=== PATIENT | female | born 1930 | race African-American/Black ===

== ENCOUNTER 2017-11-02 10:26 | Emergency (ER) | payer MEDICARE ==
[~2017-11-02] VITALS: Ht 157.5 cm; Wt 110.5 kg
[~2017-11-02 10:26] MED LIST: ALBU2.5V13 IH; ASPI-986 PO; COR12 PO; FLUT1DIS3 IH; FURO-151 PO; Isosorb Dinit/Hydralazine Hcl PO; LOSA50TA20 PO; P20 PO; POTA10TA11 PO; SIMV40TA5 PO; Spironolactone PO; VALS320T15 PO
[2017-11-02] MEDS ORDERED: NALOXONE HCL 1 MG/ML 2ML VIAL IV ONE (10:45)
[2017-11-02 11:13] LABS: HEMATOCRIT. 38.6 % (36.0-48.0); HEMOGLOBIN. 12.7 g/dL (12.0-16.0); MEAN CORPUSCULAR HEMOGLOBIN 30.2 pg (28.0-32.0); MEAN CORPUSCULAR VOLUME 91.8 fL (81.0-99.0); MEAN PLATELET VOLUME 8.8 fl (7.4-10.4); PLATELET 211 x1000/uL (130-400); RED CELL DISTRIBUTION WIDTH 15.1 % (11.6-14.6)
[2017-11-02 11:19] LABS: CHLORIDE 111 mEq/L (98-107)
[2017-11-02 11:22] LABS: ETHANOL BLOOD < 10 mg/dL
[2017-11-02 11:23] LABS: INR 1.1; PARTIAL THROMBOPLASTIN TIME 22.5 sec (23.4-31.0); PROTHROMBIN TIME 11.5 sec (9.4-11.6)
[2017-11-02] MEDS ORDERED: ETOMIDATE 2MG/ML 10ML VIAL IV ONE ×2 (11:30→13:00)
[2017-11-02] MEDS ORDERED: SUCCINYLCHOLINE CHLORIDE 200MG/10ML VIAL IV ONE ×2 (11:30→13:00)
[2017-11-02] MEDS ORDERED: PROPOFOL 10MG/ML 100ML 100 ML IV ONE ×2 (11:30→13:03)
[2017-11-02] MEDS ORDERED: MIDAZOLAM HCL 50 MG in DEXTROSE 5% WATER 40 ML IV ONE (11:30)
[2017-11-02] MEDS ORDERED: LIDOCAINE HCL/PF 1% 10 MG/ML 5ML VIAL ONE (11:41)
[2017-11-02] MEDS ORDERED: MIDAZOLAM HCL 2 MG/2 ML VIAL IV ONE (11:45)
[2017-11-02] MEDS ORDERED: ASPIRIN 300MG SUPP PR ONE (11:45)
[2017-11-02 11:48] LABS: CLARITY URINE CLEAR (CLEAR); COLOR URINE YELLOW (YELLOW); KETONES URINE NEGATIVE (NEGATIVE); LEUKOCYTE ESTERASE URINE 3+ (NEGATIVE); NITRITE URINE NEGATIVE (NEGATIVE); OCCULT BLOOD URINE 1+ (NEGATIVE); PH URINE 7.5 (4.5-8.0); PROTEIN URINE NEGATIVE (NEGATIVE); SPECIFIC GRAVITY URINE 1.006 (1.005-1.030); UROBILINOGEN URINE 0.2 E.U./dL (0.2-1.0)
[2017-11-02] MEDS ORDERED: FUROSEMIDE 40MG/4ML VIAL IVP ONE (12:00)
[2017-11-02 12:13] LABS: CANNABINOID URINE SCREEN NEGATIVE (NEGATIVE)
[2017-11-02 12:14] LABS: *AMPHETAMINES SCREEN URINE NEGATIVE (NEGATIVE); *BARBITURATES SCREEN URINE NEGATIVE (NEGATIVE); *BENZODIAZEPINES SCREEN URINE NEGATIVE (NEGATIVE); *COCAINE SCREEN URINE NEGATIVE (NEGATIVE); METHADONE URINE SCREEN NEGATIVE (NEGATIVE); OPIATES URINE SCREEN NEGATIVE (NEGATIVE); PHENCYCLIDINE URINE SCREEN NEGATIVE (NEGATIVE)
[2017-11-02 12:19] LABS: PLATELET ESTIMATE NORMAL
[2017-11-02 12:57] VITALS: BP 177/71
[2017-11-02] MEDS ORDERED: PROPOFOL 10MG/ML 100ML 100 ML IV SCH (13:00)
[2017-11-02 13:24] LABS: BG BASE EXCESS 3.1 mmol/L (-2.0-2.0); BG CARBOXYHEMOGLOBIN 0.4 % (0.5-1.5); BG DEOXYHEMOGLOBIN 0.5 % (0.0-5.0); BG FRACTION INSPIRED OXYGEN 100; BG HCO3 ACT 24.5 mmol/L (22.0-26.0); BG METHEMOGLOBIN 0.1 % (0.0-1.5); BG OXYGEN SATURATION 99.5 % (92.0-98.5); BG PCO2 28.3 mmHg (35.0-45.0); BG PH 7.556 (7.350-7.450); BG PO2 372.7 mmHg (75.0-100.0); BG SAMPLE SITE RIGHT RADIAL; BG TIDAL VOLUME(mL) 600 mL; BG TOTAL HEMOGLOBIN 12.5 g/dL (12.0-18.0); BG VENT MODE VENT - A/C; BG VENT RATE 12 set
== END 2017-11-02 13:38 | disposition short-term general hospital (02) ==
LOC: ER 10:26 → EDBEDREQSVC 11:28 → EDBEDREQ 11:28 → EDBEDREQTM 11:28 → CANBEDREQ 12:34 → ER 13:38
DX: I63.9 Cerebral infarction, unspecified (principal); J96.00 Acute respiratory failure, unspecified whether with hypoxia or hypercapnia; G92 Toxic encephalopathy; I11.0 Hypertensive heart disease with heart failure; I50.41 Acute combined systolic (congestive) and diastolic (congestive) heart failure; I50.9 Heart failure, unspecified; R94.31 Abnormal electrocardiogram [ECG] [EKG]; J44.9 Chronic obstructive pulmonary disease, unspecified; N39.0 Urinary tract infection, site not specified; Z91.018 Allergy to other foods
CPT/HCPCS: 31500; 36415; 36569; 36600; 51702; 70450; 71045; 76937; 80053; 80305; 81003; 82375; 82805; 82962; 83605; 83690; 83880; 84484; 85025; 85610; 85730; 87040; 87086; 87106; 93005; 96374; 96375; 99291; C1725; G0482; J0330; J1940; J2250; J2310; J2704; J3490; 94002; J7060

== ENCOUNTER 2018-03-11 08:41 | Inpatient (IN) | payer MEDICARE, OTHER ==
[~2018-03-11] VITALS: Ht 157.5 cm; Wt 82.6 kg
[~2018-03-11 08:41] MED LIST changes: -VALS320T15 PO; +VALS320T16 PO
[2018-03-11] MEDS ORDERED: METHYLPREDNISOLONE SOD SUCC 125 MG/2 ML VIAL IV STA (09:00)
[2018-03-11] MEDS ORDERED: IPRATROPIUM/ALBUTEROL 0.5-3(2.5)MG/3ML NEB HHN ONE (09:00)
[2018-03-11] MEDS ORDERED: IPRATROPIUM BROMIDE (0.02%) 0.5MG/2.5ML NEB ONE (09:09)
[2018-03-11] MEDS ORDERED: ALBUTEROL (0.083%) 2.5MG/3ML NEB ONE (09:09)
[2018-03-11] MEDS ORDERED: ALBUTEROL (0.5%) 2.5MG/0.5ML NEB HHN ONE (09:15)
[2018-03-11] MEDS ORDERED: IPRATROPIUM BROMIDE (0.02%) 0.5MG/2.5ML NEB HHN ONE (09:15)
[2018-03-11] MEDS ORDERED: FUROSEMIDE 40MG/4ML VIAL IVP ONE (10:00)
[2018-03-11 10:06] LABS: BASOPHILS % 0.7 % (0.0-2.0); EOSINOPHILS % 2.7 % (0.0-5.0); HEMATOCRIT. 36.8 % (36.0-48.0); HEMOGLOBIN. 12.1 g/dL (12.0-16.0); LYMPHOCYTES % 29.6 % (20.0-50.0); MEAN CORPUSCULAR HEMOGLOBIN 29.8 pg (28.0-32.0); MEAN CORPUSCULAR VOLUME 90.4 fL (81.0-99.0); MEAN PLATELET VOLUME 9.2 fl (7.4-10.4); MONOCYTES % 7.6 % (2.0-8.0); NEUTROPHILS % 59.4 % (40.0-76.0); PLATELET 186 x1000/uL (130-400); RED BLOOD CELL COUNT 4.07 mill/uL (4.2-5.4); RED CELL DISTRIBUTION WIDTH 14.5 % (11.6-14.6)
[2018-03-11 10:16] LABS: BG BASE EXCESS 2.2 mmol/L (-2.0-2.0); BG CARBOXYHEMOGLOBIN 0.2 % (0.5-1.5); BG DEOXYHEMOGLOBIN 0.6 % (0.0-5.0); BG HCO3 ACT 29.4 mmol/L (22.0-26.0); BG METHEMOGLOBIN 0.2 % (0.0-1.5); BG OXYGEN SATURATION 99.4 % (92.0-98.5); BG PCO2 57.9 mmHg (35.0-45.0); BG PH 7.324 (7.350-7.450); BG PO2 334.9 mmHg (75.0-100.0); BG SAMPLE SITE RIGHT RADIAL; BG TOTAL HEMOGLOBIN 12.4 g/dL (12.0-18.0)
[2018-03-11 10:22] LABS: INR 1.2; PARTIAL THROMBOPLASTIN TIME 25.4 sec (23.4-31.0); PROTHROMBIN TIME 11.6 sec (9.1-11.1)
[2018-03-11 10:26] LABS: CHLORIDE 103 mEq/L (98-107)
[2018-03-11] MEDS ORDERED: MAGNESIUM 2 G PREMIX 50 ML IV ONE (10:30)
[2018-03-11] MEDS ORDERED: NITROGLYCERIN OINT 1GM/INCH UDPKT TD ONE (10:45)
[2018-03-11 11:41] VITALS: BP 156/90
[2018-03-11] MEDS ORDERED: DIPHENHYDRAMINE 50MG/ML VIAL IV PRN (13:15)
[2018-03-11] MEDS ORDERED: NA PHOS,M-B/NA PHOS,DI-BA ENEMA 118ML PR PRN (13:15)
[2018-03-11] MEDS ORDERED: HYDROCODONE/ACETAMINOPHEN 5/325MG TABLET PO PRN (13:15)
[2018-03-11] MEDS ORDERED: CLONIDINE 0.1MG TABLET PO PRN (13:15)
[2018-03-11] MEDS ORDERED: ACETAMINOPHEN 325MG TABLET PO PRN (13:15)
[2018-03-11] MEDS ORDERED: LEVOFLOXACIN 500MG PREMIX 100 ML IV SCH ×2 (13:15→14:00)
[2018-03-11] MEDS ORDERED: ONDANSETRON HCL 4MG/2ML INJ IV PRN (13:15)
[2018-03-11] MEDS ORDERED: DOCUSATE SODIUM 100MG CAPSULE PO PRN (13:15)
[2018-03-11] MEDS ORDERED: IPRATROPIUM/ALBUTEROL 0.5-3(2.5)MG/3ML NEB INH PRN (13:15)
[2018-03-11] MEDS: LOSARTAN POTASSIUM 50 MG TABLET PO SCH (13:30)
[2018-03-11] MEDS ORDERED: MORPHINE SULFATE 4 MG/ML CPJ (NOT FOR IM USE) IV PRN (13:30)
[2018-03-11] MEDS: IPRATROPIUM/ALBUTEROL 0.5-3(2.5)MG/3ML NEB INH SCH ×2 (13:46→20:44)
[2018-03-11] MEDS: FUROSEMIDE 40MG/4ML VIAL IV SCH (13:53)
[2018-03-11 14:00] VITALS: BP 119/81
[2018-03-11] MEDS: SPIRONOLACTONE 25MG TABLET PO SCH (14:02)
[2018-03-11] MEDS ORDERED: METHYLPREDNISOLONE SOD SUCC 125 MG/2 ML VIAL IV SCH (14:25)
[2018-03-11] MEDS ORDERED: RACEPINEPHRINE 2.25% 0.5ML NEB VIAL HHN SCH (14:30)
[2018-03-11] MEDS: CARVEDILOL 12.5MG TABLET PO SCH ×2 (14:41)
[2018-03-11 16:00] VITALS: BP 150/84
[2018-03-11 16:32] LABS: CREATINE KINASE MB FRACTION 1.7 ng/mL (0.5-3.6)
[2018-03-11] MEDS: ENOXAPARIN 40MG/0.4ML SYR SUBCUT SCH (16:50)
[2018-03-11 18:00] VITALS: BP 125/68
[2018-03-11 20:00] VITALS: BP 97/38
[2018-03-11] MEDS: ATORVASTATIN CALCIUM 20MG TABLET PO SCH (20:24)
[2018-03-11] MEDS: METHYLPREDNISOLONE SOD SUCC 125 MG/2 ML VIAL IV SCH (20:24)
[2018-03-11] MEDS: GUAIFENESIN 200MG/10ML SUGAR FREE UDC PO PRN (21:46)
[2018-03-11 22:00] VITALS: BP 142/93
[2018-03-12] VITALS (14 sets, daily range): BP systolic 102–175; BP diastolic 29–83
[2018-03-12] MEDS: IPRATROPIUM/ALBUTEROL 0.5-3(2.5)MG/3ML NEB INH SCH ×4 (00:25→20:56)
[2018-03-12 00:36] LABS: CREATINE KINASE MB FRACTION 1.4 ng/mL (0.5-3.6)
[2018-03-12] MEDS: GUAIFENESIN 200MG/10ML SUGAR FREE UDC PO PRN ×3 (04:29→13:50)
[2018-03-12 07:30] LABS: BASOPHILS % 0.1 % (0.0-2.0); HEMATOCRIT. 34.5 % (36.0-48.0); HEMOGLOBIN. 11.2 g/dL (12.0-16.0); LYMPHOCYTES % 20.9 % (20.0-50.0); MEAN CORPUSCULAR HEMOGLOBIN 29.4 pg (28.0-32.0); MEAN CORPUSCULAR VOLUME 90.3 fL (81.0-99.0); MEAN PLATELET VOLUME 9.3 fl (7.4-10.4); MONOCYTES % 2.6 % (2.0-8.0); NEUTROPHILS % 76.4 % (40.0-76.0); PLATELET 163 x1000/uL (130-400); RED BLOOD CELL COUNT 3.82 mill/uL (4.2-5.4); RED CELL DISTRIBUTION WIDTH 14.4 % (11.6-14.6)
[2018-03-12 07:48] LABS: CHLORIDE 104 mEq/L (98-107)
[2018-03-12 07:59] LABS: HDL CHOLESTEROL 66 mg/dL (40-59); LDL CHOLESTEROL 74 mg/dL (5-100); T4 FREE 1.19 ng/dL (0.76-1.46)
[2018-03-12 08:39] LABS: BG BASE EXCESS 2.4 mmol/L (-2.0-2.0); BG CARBOXYHEMOGLOBIN 0.1 % (0.5-1.5); BG DEOXYHEMOGLOBIN 7.7 % (0.0-5.0); BG FRACTION INSPIRED OXYGEN 21; BG HCO3 ACT 27.7 mmol/L (22.0-26.0); BG METHEMOGLOBIN 0.7 % (0.0-1.5); BG OXYGEN SATURATION 92.2 % (92.0-98.5); BG OXYHEMOGLOBIN 91.5 % (94.0-97.0); BG PCO2 45.8 mmHg (35.0-45.0); BG PO2 65.1 mmHg (75.0-100.0); BG SAMPLE SITE RIGHT BRACHIAL; BG TOTAL HEMOGLOBIN 12.2 g/dL (12.0-18.0); BG VENT MODE ROOM AIR
[2018-03-12] MEDS: LOSARTAN POTASSIUM 50 MG TABLET PO SCH (08:45)
[2018-03-12] MEDS: ASPIRIN 81MG EC TABLET PO SCH (08:45)
[2018-03-12] MEDS: CARVEDILOL 12.5MG TABLET PO SCH ×2 (08:46→20:48)
[2018-03-12] MEDS: METHYLPREDNISOLONE SOD SUCC 125 MG/2 ML VIAL IV SCH (08:47)
[2018-03-12] MEDS: SPIRONOLACTONE 25MG TABLET PO SCH (08:47)
[2018-03-12] MEDS: FUROSEMIDE 40MG/4ML VIAL IV SCH (08:49)
[2018-03-12] MEDS: NYSTATIN POWDER 15GM TOP SCH ×2 (13:36→21:57)
[2018-03-12] MEDS: LEVOFLOXACIN 250MG PREMIX 50 ML IV SCH (14:50)
[2018-03-12] MEDS: ENOXAPARIN 40MG/0.4ML SYR SUBCUT SCH (17:22)
[2018-03-12] MEDS: METHYLPREDNISOLONE SOD SUCC 40 MG/ML VIAL IV SCH (20:48)
[2018-03-12] MEDS: ATORVASTATIN CALCIUM 20MG TABLET PO SCH (20:48)
[2018-03-13] VITALS (12 sets, daily range): BP systolic 109–137; BP diastolic 52–78
[2018-03-13] MEDS: IPRATROPIUM/ALBUTEROL 0.5-3(2.5)MG/3ML NEB INH SCH ×3 (01:53→20:22)
[2018-03-13] MEDS: NYSTATIN POWDER 15GM TOP SCH ×3 (05:45→21:54)
[2018-03-13 06:03] LABS: BASOPHILS % 0.1 % (0.0-2.0); HEMATOCRIT. 32.9 % (36.0-48.0); LYMPHOCYTES % 9.4 % (20.0-50.0); MEAN CORPUSCULAR HEMOGLOBIN 30.2 pg (28.0-32.0); MEAN CORPUSCULAR VOLUME 90.7 fL (81.0-99.0); MEAN PLATELET VOLUME 9.7 fl (7.4-10.4); MONOCYTES % 2.7 % (2.0-8.0); NEUTROPHILS % 87.8 % (40.0-76.0); PLATELET 164 x1000/uL (130-400); RED BLOOD CELL COUNT 3.63 mill/uL (4.2-5.4); RED CELL DISTRIBUTION WIDTH 14.5 % (11.6-14.6)
[2018-03-13 06:24] LABS: CHLORIDE 105 mEq/L (98-107)
[2018-03-13] MEDS: ASPIRIN 81MG EC TABLET PO SCH (09:06)
[2018-03-13] MEDS: METHYLPREDNISOLONE SOD SUCC 40 MG/ML VIAL IV SCH ×2 (09:06→21:54)
[2018-03-13] MEDS: SPIRONOLACTONE 25MG TABLET PO SCH (09:09)
[2018-03-13] MEDS: LOSARTAN POTASSIUM 50 MG TABLET PO SCH (09:11)
[2018-03-13] MEDS: FUROSEMIDE 20MG/2ML VIAL IV SCH (09:12)
[2018-03-13] MEDS: CARVEDILOL 12.5MG TABLET PO SCH ×2 (09:14→21:54)
[2018-03-13] MEDS: LEVOFLOXACIN 250MG PREMIX 50 ML IV SCH (15:36)
[2018-03-13] MEDS: ENOXAPARIN 40MG/0.4ML SYR SUBCUT SCH (15:48)
[2018-03-13] MEDS: ATORVASTATIN CALCIUM 20MG TABLET PO SCH (21:53)
[2018-03-14] VITALS (11 sets, daily range): BP systolic 117–144; BP diastolic 52–89
[2018-03-14] MEDS: IPRATROPIUM/ALBUTEROL 0.5-3(2.5)MG/3ML NEB INH SCH ×4 (01:56→21:12)
[2018-03-14] MEDS: NYSTATIN POWDER 15GM TOP SCH ×3 (05:32→21:26)
[2018-03-14 07:03] LABS: BG BASE EXCESS 7.9 mmol/L (-2.0-2.0); BG CARBOXYHEMOGLOBIN 0.1 % (0.5-1.5); BG HCO3 ACT 34.6 mmol/L (22.0-26.0); BG METHEMOGLOBIN 0.3 % (0.0-1.5); BG OXYHEMOGLOBIN 97.6 % (94.0-97.0); BG PCO2 58.6 mmHg (35.0-45.0); BG PH 7.389 (7.350-7.450); BG PO2 118.9 mmHg (75.0-100.0); BG SAMPLE SITE RIGHT RADIAL; BG TOTAL HEMOGLOBIN 12.1 g/dL (12.0-18.0); BG VENT MODE NASAL CANNULA
[2018-03-14] MEDS: ASPIRIN 81MG EC TABLET PO SCH (09:02)
[2018-03-14] MEDS: METHYLPREDNISOLONE SOD SUCC 40 MG/ML VIAL IV SCH ×2 (09:02→21:25)
[2018-03-14] MEDS: LOSARTAN POTASSIUM 50 MG TABLET PO SCH (09:02)
[2018-03-14] MEDS: FUROSEMIDE 20MG/2ML VIAL IV SCH (09:03)
[2018-03-14] MEDS: CARVEDILOL 12.5MG TABLET PO SCH ×2 (09:03→21:26)
[2018-03-14] MEDS: SPIRONOLACTONE 25MG TABLET PO SCH (09:04)
[2018-03-14] MEDS: LEVOFLOXACIN 250MG TABLET PO SCH (12:21)
[2018-03-14] MEDS: ENOXAPARIN 40MG/0.4ML SYR SUBCUT SCH (16:18)
[2018-03-14] MEDS: ATORVASTATIN CALCIUM 20MG TABLET PO SCH (21:25)
[2018-03-15] VITALS (9 sets, daily range): BP systolic 105–133; BP diastolic 43–71
[2018-03-15] MEDS: NYSTATIN POWDER 15GM TOP SCH ×2 (06:00→12:31)
[2018-03-15] MEDS: IPRATROPIUM/ALBUTEROL 0.5-3(2.5)MG/3ML NEB INH SCH ×2 (08:31→13:31)
[2018-03-15] MEDS: CARVEDILOL 12.5MG TABLET PO SCH (09:00)
[2018-03-15] MEDS: FUROSEMIDE 20MG/2ML VIAL IV SCH (09:52)
[2018-03-15] MEDS: METHYLPREDNISOLONE SOD SUCC 40 MG/ML VIAL IV SCH (09:52)
[2018-03-15] MEDS: SPIRONOLACTONE 25MG TABLET PO SCH (09:53)
[2018-03-15] MEDS: ASPIRIN 81MG EC TABLET PO SCH (09:53)
[2018-03-15] MEDS: LOSARTAN POTASSIUM 50 MG TABLET PO SCH (09:53)
[2018-03-15] MEDS: LEVOFLOXACIN 250MG TABLET PO SCH (12:31)
== END 2018-03-15 15:08 | disposition home or self-care (01) | DRG 291 ==
LOC: ER 08:41 → ENRESERV 09:48 → 5EST 10:03 → EDBEDREQTM 10:06 → EDBEDREQ 10:06 → EDBEDREQSVC 10:06 → ENRESERV 10:30
PROVIDERS: ADMIT Hospitalist; ATTEND Hospitalist
PROC: 5A09357 Assistance with Respiratory Ventilation, Less than 24 Consecutive Hours, Continuous Positive Airway Pressure (ICD-10-PCS; principal; 2018-03-11)
DX: I11.0 Hypertensive heart disease with heart failure (principal); J96.00 Acute respiratory failure, unspecified whether with hypoxia or hypercapnia; J44.1 Chronic obstructive pulmonary disease with (acute) exacerbation; E87.2 Acidosis; I50.23 Acute on chronic systolic (congestive) heart failure; I25.10 Atherosclerotic heart disease of native coronary artery without angina pectoris; I42.9 Cardiomyopathy, unspecified; I49.5 Sick sinus syndrome; Z82.49 Family history of ischemic heart disease and other diseases of the circulatory system; Z87.891 Personal history of nicotine dependence; Z91.018 Allergy to other foods; Z79.51 Long term (current) use of inhaled steroids; Z79.899 Other long term (current) drug therapy; Z79.82 Long term (current) use of aspirin; Z71.6 Tobacco abuse counseling
CPT/HCPCS: 36415; 36600; 71045; 80061; 82375; 82550; 82553; 82805; 83880; 84134; 84439; 84443; 84484; 87804; 93005; 93306; 93970; 94640; 94644; 94660; 96374; 97162; 99291; A6261; J1650; J1940; J1956; J2920; J2930; J3475; J7050; J7611; J7620

== ENCOUNTER 2018-06-26 09:48 | Inpatient (IN) | payer MEDICARE, OTHER ==
[~2018-06-26] VITALS: Ht 157.5 cm; Wt 80.7 kg
[2018-06-26 11:06] LABS: BASOPHILS % 1.1 % (0.0-2.0); EOSINOPHILS % 2.4 % (0.0-5.0); HEMATOCRIT. 36.6 % (36.0-48.0); HEMOGLOBIN. 11.9 g/dL (12.0-16.0); LYMPHOCYTES % 32.6 % (20.0-50.0); MEAN CORPUSCULAR HEMOGLOBIN 30.7 pg (28.0-32.0); MEAN CORPUSCULAR VOLUME 94.4 fL (81.0-99.0); MEAN PLATELET VOLUME 9.8 fl (7.4-10.4); MONOCYTES % 9.5 % (2.0-8.0); NEUTROPHILS % 54.4 % (40.0-76.0); PLATELET 143 x1000/uL (130-400); RED BLOOD CELL COUNT 3.87 mill/uL (4.2-5.4); RED CELL DISTRIBUTION WIDTH 15.5 % (11.6-14.6)
[2018-06-26 11:09] LABS: CHLORIDE 111 mEq/L (98-107)
[2018-06-26 17:30] VITALS: BP 151/70
[2018-06-26] MEDS ORDERED: DOCUSATE SODIUM 100MG CAPSULE PO PRN (17:45)
[2018-06-26] MEDS ORDERED: NA PHOS,M-B/NA PHOS,DI-BA ENEMA 118ML PR PRN (17:45)
[2018-06-26] MEDS ORDERED: LORAZEPAM 2MG/ML CPJ IV PRN (17:45)
[2018-06-26] MEDS ORDERED: MORPHINE SULFATE 4 MG/ML CPJ (NOT FOR IM USE) IV PRN (17:45)
[2018-06-26] MEDS ORDERED: HYDROCODONE/ACETAMINOPHEN 5/325MG TABLET PO PRN (17:45)
[2018-06-26] MEDS ORDERED: MAGNESIUM/ALUMINUM HYDROXIDE/SIMETHICONE 30ML UDC PO PRN (17:45)
[2018-06-26] MEDS ORDERED: ONDANSETRON HCL 4MG/2ML INJ IV PRN (17:45)
[2018-06-26] MEDS ORDERED: ACETAMINOPHEN 325MG TABLET PO PRN (17:45)
[2018-06-26] MEDS ORDERED: GUAIFENESIN 200MG/10ML SUGAR FREE UDC PO PRN (17:45)
[2018-06-26] MEDS ORDERED: CLONIDINE 0.1MG TABLET PO PRN (17:45)
[2018-06-26] MEDS: ENOXAPARIN 40MG/0.4ML SYR SUBCUT SCH (18:36)
[2018-06-26] MEDS: ASPIRIN 81MG EC TABLET PO SCH (18:37)
[2018-06-26] MEDS: FUROSEMIDE 40MG/4ML VIAL IV SCH (18:38)
[2018-06-26 19:41] VITALS: BP 145/75
[2018-06-26 20:00] VITALS: BP 148/70
[2018-06-26] MEDS: ATORVASTATIN CALCIUM 40MG TABLET PO SCH (20:54)
[2018-06-26] MEDS: CARVEDILOL 12.5MG TABLET PO SCH (20:55)
[2018-06-27] VITALS (7 sets, daily range): BP systolic 121–140; BP diastolic 61–81
[2018-06-27 07:31] LABS: CHLORIDE 109 mEq/L (98-107)
[2018-06-27 07:39] LABS: BASOPHILS % 0.9 % (0.0-2.0); HEMATOCRIT. 34.2 % (36.0-48.0); LYMPHOCYTES % 41.2 % (20.0-50.0); MEAN CORPUSCULAR HEMOGLOBIN 30.6 pg (28.0-32.0); MEAN CORPUSCULAR VOLUME 95.1 fL (81.0-99.0); MEAN PLATELET VOLUME 9.4 fl (7.4-10.4); MONOCYTES % 9.1 % (2.0-8.0); NEUTROPHILS % 45.8 % (40.0-76.0); PLATELET 133 x1000/uL (130-400); RED CELL DISTRIBUTION WIDTH 15.5 % (11.6-14.6)
[2018-06-27 07:46] LABS: CREATINE KINASE 52 IU/L (26-192)
[2018-06-27] MEDS: FUROSEMIDE 40MG/4ML VIAL IV SCH (08:12)
[2018-06-27] MEDS: CARVEDILOL 12.5MG TABLET PO SCH ×2 (08:13→20:45)
[2018-06-27] MEDS: SPIRONOLACTONE 25MG TABLET PO SCH (08:13)
[2018-06-27] MEDS: ASPIRIN 81MG EC TABLET PO SCH (08:13)
[2018-06-27 08:44] LABS: BG BASE EXCESS 5.2 mmol/L (-2.0-2.0); BG DEOXYHEMOGLOBIN 7.8 % (0.0-5.0); BG FRACTION INSPIRED OXYGEN 21; BG HCO3 ACT 30.7 mmol/L (22.0-26.0); BG METHEMOGLOBIN 0.3 % (0.0-1.5); BG OXYGEN SATURATION 92.1 % (92.0-98.5); BG OXYHEMOGLOBIN 90.9 % (94.0-97.0); BG PCO2 48.8 mmHg (35.0-45.0); BG PH 7.416 (7.350-7.450); BG PO2 63.7 mmHg (75.0-100.0); BG SAMPLE SITE RIGHT BRACHIAL; BG TOTAL HEMOGLOBIN 12.2 g/dL (12.0-18.0); BG VENT MODE ROOM AIR
[2018-06-27] MEDS ORDERED: IPRATROPIUM/ALBUTEROL 0.5-3(2.5)MG/3ML NEB HHN PRN (11:00)
[2018-06-27] MEDS: ENOXAPARIN 40MG/0.4ML SYR SUBCUT SCH (17:11)
[2018-06-27] MEDS: ATORVASTATIN CALCIUM 40MG TABLET PO SCH (20:45)
[2018-06-28 00:04] VITALS: BP 143/72
[2018-06-28 04:00] VITALS: BP 127/58
[2018-06-28 08:00] VITALS: BP 144/49
[2018-06-28] MEDS: ASPIRIN 81MG EC TABLET PO SCH (08:38)
[2018-06-28] MEDS: CARVEDILOL 12.5MG TABLET PO SCH (08:38)
[2018-06-28] MEDS: FUROSEMIDE 40MG/4ML VIAL IV SCH (08:39)
[2018-06-28] MEDS: SPIRONOLACTONE 25MG TABLET PO SCH (08:39)
[2018-06-28 12:39] VITALS: BP 119/51
== END 2018-06-28 15:56 | disposition home health service (06) | DRG 292 ==
LOC: ER 10:07 → 7WST 13:51 → EDBEDREQ 14:20 → ENRESERV 15:28
PROVIDERS: ADMIT Hospitalist; ATTEND Hospitalist
DX: I11.0 Hypertensive heart disease with heart failure (principal); E87.0 Hyperosmolality and hypernatremia; E44.0 Moderate protein-calorie malnutrition; I50.23 Acute on chronic systolic (congestive) heart failure; R07.9 Chest pain, unspecified; E78.5 Hyperlipidemia, unspecified; J44.9 Chronic obstructive pulmonary disease, unspecified; D63.8 Anemia in other chronic diseases classified elsewhere; I27.20 Pulmonary hypertension, unspecified; Z79.82 Long term (current) use of aspirin; Z79.899 Other long term (current) drug therapy; Z68.32 Body mass index [BMI] 32.0-32.9, adult
CPT/HCPCS: 36415; 36600; 71045; 82375; 82550; 82805; 83880; 84484; 93005; 93306; 93970; 96374; 99285; J1650; J1940; J7050